=== PATIENT | female | born 1995 | race African-American/Black ===

== ENCOUNTER 2017-03-07 13:41 | Emergency (ER) | payer OTHER ==
[~2017-03-07] VITALS: Ht 182.9 cm; Wt 80.7 kg
[2017-03-07 14:32] LABS: BASOPHIL % 0.6 % (0-2); PLATELET COUNT 234 x10^3mcL (130-400); RED CELL DISTRIBUTION WIDTH 13.2 % (11.5-14.5)
[2017-03-07 14:35] LABS: microscopic required? YES; urine erythrocyte NEGATIVE (NEGATIVE)
[2017-03-07 14:47] LABS: CALCIUM 8.8 mg/dL (8.5-10.1); CARBON DIOXIDE 24.4 mmol/L (21-32); CHLORIDE SERUM 104 mmol/L (98-107); CREATININE SERUM 0.4 mg/dL (0.6-1.0); GFR1 > 60 mL/min; GLUCOSE SERUM 76 mg/dL (74-106); POTASSIUM SERUM 3.6 mmol/L (3.5-5.1); SODIUM SERUM 136 mmol/L (136-145)
[2017-03-07 14:55] LABS: ALKALINE PHOSPHATASE 73 U/L (46-116); ALT/SGPT 14 U/L (14-59); AST/SGOT 11 U/L (15-37); BILIRUBIN TOTAL 0.13 mg/dL (0.20-1.00); LIPASE 56 IU/L (73-393); TOTAL PROTEIN, SERUM 6.5 g/dL (6.4-8.2)
[2017-03-07 14:56] LABS: ALBUMIN 2.8 g/dL (3.4-5.0)
[2017-03-07 16:53] VITALS: BP 140/72
== END 2017-03-07 16:54 | disposition home or self-care (01) ==
LOC: ED 13:41
PROVIDERS: Emergency Medicine
DX: O23.42 Unspecified infection of urinary tract in pregnancy, second trimester (principal); E86.0 Dehydration; Z3A.26 26 weeks gestation of pregnancy
CPT/HCPCS: J0696; J2405; J2765; J7030; Q0092